=== PATIENT | female | born 1995 | race Caucasian/White ===

== ENCOUNTER → 2017-09-14 15:34 | Outpatient (CLI) | payer OTHER, SELFPAY ==
[2017-09-14 19:45] LABS: Chlamydia Trachomatis by PCR Negative (Negative); Neisserai gonorrhoeae by PCR Negative (Negative); Probe Check PASS; Sample Adequacy Control PASS; Specimen Processing Control PASS
[2017-09-17 08:02] LABS: HPV Reflexed? NOT INDICATED
== END ==
PROVIDERS: Visit Provider Obstetrics & Gynecology
DX: Z12.4 Encounter for screening for malignant neoplasm of cervix (principal); Z11.3 Encounter for screening for infections with a predominantly sexual mode of transmission
CPT/HCPCS: 87491; 87591; 88175; G0145

== ENCOUNTER → 2017-10-03 15:14 | Outpatient (CLI) | payer OTHER, SELFPAY ==
[2017-10-03 17:19] LABS: Color, Urine Yellow (Yellow); Glucose, Dipstick Normal (Normal); Ketone-Dipstick Negative (Negative); Leukocyte Esterase-Dipstick Negative /ul (Negative); Nitrite-Dipstick Negative (Negative); Occult Blood-Urine 25 /ul (Negative); Protein-Dipstick Negative (Negative); Urine Bilirubin Dipstick Negative (Negative); Urine Clarity Clear (Clear); Urine Urobilinogen Normal (Normal); Urine pH 6.5 (5.0 - 8.0)
[2017-10-03 18:08] LABS: Absolute Lymphocyte Count 1.29 X10^3/ul (0.83-4.51); Absolute Neutrophil Count 5.7 X10^3/uL (2.0-7.7); Basophil# 0.01 X10^3/uL; Basophil% 0.1 % (0-1); Eosinophil# 0.04 X10^3/uL; Eosinophils% 0.5 % (0-5); Hemoglobin 12.3 g/dl (12.0-15.0); Lymphocyte # 1.29 X10^3/ul (4.0); Mean Corp Hgb Conc 34.2 g/gl (32-36); Mean Corpuscular Hgb 28.3 pg (27.0-32.0); Mean Corpuscular Volume 82.9 fL (81-99); Mean Platelet Vol. 10.3 fl (6.2-12.0); Monocyte# 0.57 X10^3/uL; Monocyte% 7.5 % (0-10); Neutrophil # 5.69 X10^3/uL (2.7-7.7); Neutrophil % 74.8 % (47-70); Platelet Count 219 K/mm3 (150-450); RBC Distribution Width CV 13.1 % (11.6-14.6); RBC Distribution Width SD 39.1 fl (35.1-43.9); Red Blood Count 4.34 M/mm3 (4.2-5.4); White Blood Count 7.6 K/mm3 (4.4-11.0)
[2017-10-03 18:09] LABS: POSITIVE COUNT NO; POSITIVE DIFFERENTIAL NO; POSITIVE MORPHOLOGY NO
[2017-10-03 18:41] LABS: HIV - WCH Non-Reactive (Nonreactive); Rubella IgG 56.5 IU/mL
[2017-10-05 11:19] LABS: HEPATITIS B SURFACE AG Negative (Negative); Hep C Antibodies <0.1 s/co ratio (0.0-0.9)
[2017-10-07 03:16] LABS: Prenatal RPR NONREACTIVE (NONREACTIVE)
== END ==
PROVIDERS: Visit Provider Obstetrics & Gynecology
DX: Z34.81 Encounter for supervision of other normal pregnancy, first trimester (principal)
CPT/HCPCS: 36415; 81002; 84443; 85025; 86703; 86762; 86803; 87340

== ENCOUNTER → 2017-12-27 10:45 | Outpatient (CLI) | payer OTHER, SELFPAY ==
[2017-12-27 12:23] LABS: Hematocrit 35.7 % (37-47); Hemoglobin 12.3 g/dl (12.0-15.0); Mean Corp Hgb Conc 34.5 g/gl (32-36); Mean Corpuscular Hgb 28.9 pg (27.0-32.0); Mean Corpuscular Volume 83.8 fL (81-99); Mean Platelet Vol. 10.1 fl (6.2-12.0); Platelet Count 188 K/mm3 (150-450); RBC Distribution Width CV 13.4 % (11.6-14.6); RBC Distribution Width SD 40.7 fl (35.1-43.9); Red Blood Count 4.26 M/mm3 (4.2-5.4); White Blood Count 11.7 K/mm3 (4.4-11.0)
[2017-12-27 12:25] LABS: Scan Indicated on CBC? Y/N NO
[2017-12-27 12:48] LABS: Hemoglobin A1c 5.1 % (4.2-6.3)
[2017-12-27 12:50] LABS: Thyroid Stim Hormone (TSH) 0.87 uIU/mL (0.358-3.74)
== END ==
PROVIDERS: Visit Provider Obstetrics & Gynecology
DX: Z34.82 Encounter for supervision of other normal pregnancy, second trimester (principal)
CPT/HCPCS: 36415; 83036; 84443; 85027

== ENCOUNTER → 2018-03-07 13:27 | Outpatient (CLI) | payer OTHER, SELFPAY ==
--- OUTSIDE RECORDS SUMMARY | 2018-06-09 00:23 | XMS RPT_ITS ---
:1995 Author Organization OHIP Care Team Providers Name Role Phone Aide Schroeder Attending Unavailable Aide Schroeder Attending Unavailable Aide Schroeder Attending Unavailable Carolyn Garcia Primary Care Unavailable Jackson Ferreira Admitting Unavailable Jackson Ferreira Attending Unavailable Jackson Ferreira Referring Unavailable Aide Schroeder Attending Unavailable PROBLEMS PROBLEMS DATE TYPE CONDITION / CODE ATTENDING STATUS SOURCE 03/31/2018 Unknown G89.18 - Other acute Jackson Ferreira Active [facility] postprocedural pain Community / G89.18(ICD-10) Hospital Repository 03/07/2018 Unknown Z36.85 - Encounter Aide Schroeder Active Carol for Community screening for Hospital Streptococcus B / Repository Z36.85(ICD-10) 12/27/2017 Unknown Z34.82 - Encounter Aide Schroeder Active Carol for supervision of Community other normal Hospital , second Repository trimester / Z34.82(ICD-10) 10/03/2017 Unknown Z34.81 - Encounter Aide Schroeder Active Angelica for supervision of Community other normal Hospital , first Repository trimester / Z34.81(ICD-10) 09/23/2017 Unknown Z12.4 - Encounter Aide Schroeder Active Carol for screening for Community malignant neoplasm [facility] cervix / Repository Z12.4(ICD-10) PROCEDURES PROCEDURES No Procedure Records FoundRESULTS RESULTS DISCHARGE SUMMARY Observed: 03/31/2018 Status: F Source: [place] 7:15 AM [facility] REPOSITORY [facility] Medical Records Department [address] [place] [address] Discharge Summary 03/31/18 0713 MR#: [id number] Acct: [id number] Name: DAMIR GONZALEZ Rep #: [id number] : 1995 22 From: Aide Schroeder MD PCP: Status: ADM IN Location: [place] [address] Discharge Date and Diagnosis Date of Admission: 03/27/18 - Breech, labor. Date of Discharge: 03/31/18 - S/P primary C/S POD#4 Hospital Course and Treatment Consultations 03/27/18 19:45 Consult: Anesthesia Routine Comment: Reason For Exam: Operations: - - C section Summary of Care Provided: The patient is a 22 year old female presents with SROM in labor, breech presentation. Admitted for primary C/S. C/S performed, uncomplicated. delivered a newton viable male Postoperative course uneventful. AVSS benign exam Elected to stay until POD#4 for maternal fatigue and bilirubin requiring bili lights. Home on POD#4 - Physical Exam Vital Signs Temp Pulse Resp BP Pulse Ox 97.9 F 85 16 135/66 H 98 03/31/18 01:02 03/31/18 01:02 03/31/18 01:02 03/31/18 01:02 03/31/18 01:02 Oxygen Delivery Method Room Air Weight: 99.7 kg Body Mass Index (BMI) 33.4 Intake and Output for Last 24 Hours Output Total 500 / 500 Balance -500 / -500 Discharge Diet: No Restrictions Discharge Activity: May not drive while taking narcotic pain medications., May Shower, May Take a Tub Bath May resume sexual activity in: 4-6 weeks Additional Activity Instructions:: Nothing in the vagina for 4-6 weeks. You may return to work/school in 6 weeks. Call your doctor if your incision/area has: Continuous Slow Oozing, Sudden Increased Bleeding, Increased Pain/ Swelling, Increased Redness, Foul Smelling Discharge Call your doctor if you observe: Fever of 101 or Higher, Inability to urinate, Inability to have a bowel movement, Using more than one pad per hour Home Medications: Medications to take at Discharge Docusate Sodium [Colace] 100 mg PO BID PRN PRN #60 cap 03/27/18 Oxycodone [Oxyir] 5 mg PO Q6H PRN PRN 7 Days #20 tab 03/27/18 Following Prescrptions Were Given to Patient: Oxycodone [Oxyir] 5 mg PO Q6H PRN PRN 7 Days #20 tab PRN Reason: Severe Pain (6-12/28) Docusate Sodium [Colace] 100 mg PO BID PRN PRN #60 cap PRN Reason: Constipation Please Follow Up With: Aide Schroeder MD - [phone] When: Call to make an appointment for an incision check in 2 weeks. Medical Necessity - Tobacco Use Smoking Status: Never smoker Meaningful Use Info Meaningful Use Diagnoses (Choose all that apply): None applicable 03/31/18714 <Electronically signed by Aide Schroeder MD> Date Aide Schroeder MD Cosigner Signature (if applicable): Date CC: Aide Schroeder MD Signed CBC-COMPLETE BLOOD CNT Collected: 03/28/2018 Status: F Source: [place] NO DIFF 5:55 AM [facility] REPOSITORY Order Comment: Comments: Day #1 Reason for Laboratory Test TYPE CODE TESTS RESULT OUT OF RANGE REFERENCE UNITS LAB L100.1000 4.4-11.0 K/mm3 High WBC 14.7 LAB L100.1200 4.2-5.4 M/mm3 Low RBC 3.74 LAB L100.1300 12.0-15.0 g/dl Low HGB 10.4 LAB L100.1400 37-47 % Low HCT 31.5 LAB L100.1500 81-99 fL Normal MCV 84.2 LAB L100.1600 27.0-32.0 pg Normal MCH 27.8 LAB L100.1700 32-36 g/gl Normal MCHC 33.0 LAB L100.1810 11.6-14.6 % Normal RDW CV 13.6 LAB L100.1820 35.1-43.9 fl Normal RDW SD 40.9 LAB L100.1900 150-450 K/mm3 Normal PLT 164 LAB L100.2000 6.2-12.0 fl Normal MPV 10.0 Performed By: #### L100.0500 #### [facility] [address] [place], [address] DISCHARGE INSTRUCTION Observed: 03/27/2018 Status: F Source: [place] 10:21 PM [facility] REPOSITORY [facility] Medical Records Department [address] [place] [address] Instructions for Home/Discharge Instructions 03/27/18 2220 MR#: [id number] Acct: [id number] Name: DAMIR GONZALEZ Rep #: [id number] : 1995 22 From: Jackson Ferreira MD PCP: Status: ADM IN Discharge Diet: No Restrictions Discharge Activity: May not drive while taking narcotic pain medications., May Shower, May Take a Tub Bath May resume sexual activity in: 4-6 weeks Lifting Restrictions: 20 pounds Additional Activity Instructions:: Nothing in the vagina for 4-6 weeks. You may return to work/school in 6 weeks. Call your doctor if your incision/area has: Continuous Slow Oozing, Sudden Increased Bleeding, Increased Pain/ Swelling, Increased Redness, Foul Smelling Discharge Call your doctor if you observe: Fever of 101 or Higher, Inability to urinate, Inability to have a bowel movement, Using more than one pad per hour Additional Instructions: If you experience any of the following, contact your healthcare provider. * Bleeding that soaks a pad every hour for 2 hours * Unrelieved incision or abdominal pain * Swelling, redness, discharge or bleeding from your incision or episiotomy site * Your incision begins to separate * Problems urinating (including inability to urinate or burning while urinating). * Visual changes * Severe headache * Flu-like symptoms * Pain or redness in one of both of your breasts * Pain, warmth, tenderness or swelling in your legs, especially the calf area * Frequent nausea and vomiting * Symptoms of depression or anxiety If you experience any of the following, call 911 or go to the nearest Emergency Room. * Chest pain * Problems breathing * Seizure activity * Partial or complete paralysis of a body part, slurred speech, weakness or drooping of the face, or a sudden inability to walk or hold your balance Allergies/Adverse Reactions: Allergies No Known Allergies Allergy (Verified 03/27/18 20:43) Medications to take at Discharge Docusate Sodium [Colace] 100 mg PO BID PRN PRN #60 cap 03/27/18 Oxycodone [Oxyir] 5 mg PO Q6H PRN PRN 7 Days #20 tab 03/27/18 The following prescriptions were given: Oxycodone [Oxyir] 5 mg PO Q6H PRN PRN 7 Days #20 tab PRN Reason: Severe Pain (-12/28) Docusate Sodium [Colace] 100 mg PO BID PRN PRN #60 cap PRN Reason: Constipation Follow-Up: Call to make an appointment with your doctor for an incision check in 1-2 weeks. You will also need a 6 week post- follow up appointment. Please Follow Up With: Aide Schroeder MD - [phone] When: Call to make an appointment for an incision check in 2 weeks. 03/27/182220 <Electronically signed by Jackson Ferreira MD> Date Jackson Ferreira MD CC: Signed OPERATIVE REPORT Observed: 03/27/2018 Status: F Source: [place] 10:20 PM [facility] REPOSITORY [facility] Medical Records Department [address] [place] [address] Operative Report 03/27/18 2211 MR#: [id number] Acct: [id number] Name: GONZALEZDAMIR D Rep #: [id number] : 1995 22 From: Jackson Ferreira MD PCP: Status: ADM IN Location: [id number] Report of Operation Date of Procedure: 03/27/18 Pre-Operative Diagnosis: Breech Presentation, Active Labor Post-Operative Diagnosis: Breech Presentation, Active Labor Surgery/Procedure Performed:: Primary Low Transverse Cervical Section Description of Surgical Findings:: Viable male infant with Apgars of 8/9 in a estefania breech presentation with clear amniotic fluid and normal three-vessel placenta. Normal-appearing fallopian tubes and ovaries. net developer contract: Cynthia Andersen Type of Anesthesia:: Spinal - with Duramorph Anesthesiologist: Jose Luis Garcia Specimen's removed: [facility]a to [facility] Drains: Khan to straight drain Estimated Blood Loss (mL): <500 cc Fluids Replaced: Crystalloid Description of Procedure: Surgeon: Jackson Ferreira MD, FACOG Indication: This is a 22-year-old 1 para 0 who presented in active labor at 39+ weeks. She was ruptured. She progressed from 2-6 cm quickly and at this point it was noted that the baby was in breech presentation. It was decided to proceed immediately to primary section. care has otherwise been uneventful. The patient has been counseled regarding the risk and indications of this procedure including the possibility of bleeding infection and injury to surrounding structures such as bowel bladder. All questions were answered. Procedure: Patient was taken to the operating room where after spinal anesthesia was placed, the patient was prepped and draped in usual sterile fashion and a Khan catheter was placed. The abdomen was entered through a Pfannenstiel incision and peritoneum was entered bluntly. After developing a bladder flap on the lower uterine segment a low transverse incision was made on the uterus and breech was easily delivered onto the operative field the nose mouth and oropharynx were bulb suctioned. Subsequently a viable male infant was born with Apgars of 8/9. The infant was noted to cry move all extremities vigorously on the operative field. The umbilical cord was doubly clamped and ligated and handed to the nursery personnel who were present for the delivery. Placenta was delivered and noted to be 3 vessels and normal. Uterus was exteriorized and remaining placental tissue was removed. The uterus was then closed in 2 layers first with running locked 0 Vicryl suture followed by a second imbricating layer with 0 Vicryl suture. 0 Vicryl suture was then used in a horizontal mattress interrupted fashion to affect final hemostasis of the uterine incision line. Normal fallopian tubes and ovaries were visualized and the uterus was returned to the pelvis. Hemostasis was noted and rectus abdominis muscles were reapproximated in the midline with interrupted Number 0 Vicryl suture in a horizontal mattress fashion. Fascia was closed with running Number 1 PDS Strata fix suture. Subcutaneous tissue was irrigated with copious amouts of saline solution and then closed with running 3-0 Vicryl suture. Skin was closed with 4-0 monocryl suture in a running subcuticular fashion. Steri strips, telfa, and tape were placed across the incision. The patient tolerated the procedure well and was taken to the recovery room in satisfactory condition. Sponge, needle, and instrument counts were all reportedly correct. EBL was less than 500 cc. Ancef 2 gms IV was given prior to the procedure. Grafts/Implants Used: None - Complications None - Admit VTE Documentation VTE Present on Admission: Yes VTE Mechan Device Prophylaxis: SCD's 03/27/182219 <Electronically signed by Jackson Ferreira MD> Date Jackson Ferreira MD CC: Jackson Ferreira MD Signed CBC-COMPLETE BLOOD CNT Collected: 03/27/2018 Status: F Source: [place] NO DIFF 8:06 PM [facility] REPOSITORY TYPE CODE TESTS RESULT OUT OF RANGE REFERENCE UNITS LAB L100.1000 4.4-11.0 K/mm3 High WBC 12.1 LAB L100.1200 4.2-5.4 M/mm3 Normal RBC 4.29 LAB L100.1300 12.0-15.0 g/dl Normal HGB 12.3 LAB L100.1400 37-47 % Low HCT 35.9 LAB L100.1500 81-99 fL Normal MCV 83.7 LAB L100.1600 27.0-32.0 pg Normal MCH 28.7 LAB L100.1700 32-36 g/gl Normal MCHC 34.3 LAB L100.1810 11.6-14.6 % Normal RDW CV 13.5 LAB L100.1820 35.1-43.9 fl Normal RDW SD 40.4 LAB L100.1900 150-450 K/mm3 Normal PLT 196 LAB L100.2000 6.2-12.0 fl Normal MPV 10.5 Performed By: #### L100.0500 #### [facility] [address] [place], [address] TYPE AND SCREEN Collected: 03/27/2018 Status: F Source: [place] 8:06 PM [facility] REPOSITORY Order Comment: Reason for Type AND Screen/Red Cells: TYPE CODE TESTS RESULT OUT OF RANGE REFERENCE UNITS LAB B10.0800 A Normal BLOOD TYPE GEL POSITIVE LAB B100.4000 Normal Antibody NEGATIVE Screen Performed By: #### B101.7450 #### [facility] [address] [place], [address] Observed: 03/07/2018 Status: F Source: [place] CULTURE, GROUP B 8:45 AM [facility]PT[facility] REPOSITORY Comments: VAGINAL/RECTAL KEYLA Culture RESULTS CALLED TO NURSE LINE DR. SCHROEDER OFFICE 03/10/18 0946 Shawna Craft. ORGANISM 1: Streptococcus agalactiae (B) Amount Growth 3+ Streptococcus agalactiae (B): REACTION Ampicillin $ <=0.25 S Clindamycin $$ <=0.25 S Inducable Clindamycin Resistan - Linezolid $$$$ <=2 S Vancomycin $ 0.5 S (NF) indicates non-formulary drug at [facility]. Approval by Infectious Disease Specialist required before non-formulary drugs may be ordered and/or dispensed. * CLSI guidelines does not recommend testing of cephalosporins. This interpretation is deduced from Beta-lactam/penicillin results. Performed By: #### M100.1800 #### [facility] [address] [place], [address] CBC-COMPLETE BLOOD CNT Collected: 12/27/2017 Status: F Source: [place] NO DIFF 10:49 AM [facility] REPOSITORY TYPE CODE TESTS RESULT OUT OF RANGE REFERENCE UNITS LAB L100.1000 4.4-11.0 K/mm3 High WBC 11.7 LAB L100.1200 4.2-5.4 M/mm3 Normal RBC 4.26 LAB L100.1300 12.0-15.0 g/dl Normal HGB 12.3 LAB L100.1400 37-47 % Low HCT 35.7 LAB L100.1500 81-99 fL Normal MCV 83.8 LAB L100.1600 27.0-32.0 pg Normal MCH 28.9 LAB L100.1700 32-36 g/gl Normal MCHC 34.5 LAB L100.1810 11.6-14.6 % Normal RDW CV 13.4 LAB L100.1820 35.1-43.9 fl Normal RDW SD 40.7 LAB L100.1900 150-450 K/mm3 Normal PLT 188 LAB L100.2000 6.2-12.0 fl Normal MPV 10.1 Performed By: #### L100.0500 #### [facility] [address] [place], [address] HEMOGLOBIN A1C Collected: 12/27/2017 Status: F Source: [place] 10:49 AM [facility] REPOSITORY TYPE CODE TESTS RESULT OUT OF RANGE REFERENCE UNITS LAB L501.9985 4.2-6.3 % Normal HGB A1C 5.1 Performed By: #### L501.9985 #### [facility] [address] [place], [address] THYROID STIM HORMONE Collected: 12/27/2017 Status: F Source: [place] (TSH) 10:49 AM [facility] REPOSITORY TYPE CODE TESTS RESULT OUT OF RANGE REFERENCE UNITS LAB L501.9520 0.358-3.74 uIU/mL Normal TSH 0.87 Performed By: #### L501.9520 #### [facility] [address] [place], [address] URINALYSIS, ROUTINE Collected: 10/03/2017 Status: F Source: [place] (DIPSTICK) 3:16 PM [facility] REPOSITORY Order Comment: How was Urine Obtained? Urine, Random TYPE CODE TESTS RESULT OUT OF RANGE REFERENCE UNITS LAB L400.3000 Yellow COLOR Normal Yellow LAB L400.3050 Clear Normal CLARITY Clear LAB L400.3200 Normal mg/dl Normal GLUCOSE, UR Normal LAB L400.3300 Negative mg/dL Normal BILIRUBIN URINE Negative LAB L400.3400 Negative mg/dl Normal KETONE UR Negative LAB L400.3465 1.002-1.030 Normal SP.GR. DIPSTX 1.020 LAB L400.3550 5.0 - 8.0 pH UR Normal 6.5 LAB L400.3600 Negative mg/dl PROT Normal DIPSTX Negative LAB L400.3700 Normal mg/dl Normal UROBILI Normal LAB L400.3750 Negative Normal NITRITE UR Negative LAB L400.3780 Negative /ul High 25 OCCULT BLOOD-UR LAB L400.3800 Negative /ul LEUK Normal ESTERASE Negative Performed By: #### L400.2010 #### [facility] [address] [place], [address] THYROID STIM HORMONE Collected: 10/03/2017 Status: F Source: [place] (TSH) 3:16 PM [facility] REPOSITORY TYPE CODE TESTS RESULT OUT OF RANGE REFERENCE UNITS LAB L501.9520 0.358-3.74 uIU/mL Normal TSH 1.50 Performed By: #### L501.9520 #### [facility] [address] [place], [address] CBC W/DIFF, AUTOMATED Collected: 10/03/2017 Status: F Source: [place] 3:16 PM [facility] REPOSITORY TYPE CODE TESTS RESULT OUT OF RANGE REFERENCE UNITS LAB L100.1000 4.4-11.0 K/mm3 Normal WBC 7.6 LAB L100.1200 4.2-5.4 M/mm3 Normal RBC 4.34 LAB L100.1300 12.0-15.0 g/dl Normal HGB 12.3 LAB L100.1400 37-47 % Low HCT 36.0 LAB L100.1500 81-99 fL Normal MCV 82.9 LAB L100.1600 27.0-32.0 pg Normal MCH 28.3 LAB L100.1700 32-36 g/gl Normal MCHC 34.2 LAB L100.1810 11.6-14.6 % Normal RDW CV 13.1 LAB L100.1820 35.1-43.9 fl Normal RDW SD 39.1 LAB L100.1900 150-450 K/mm3 Normal PLT 219 LAB L100.2000 6.2-12.0 fl Normal MPV 10.3 LAB L100.2100 47-70 % High NEUT% 74.8 LAB L100.2200 19-41 % Low LY% 17.0 LAB L100.2300 0-10 % Normal MONO% 7.5 LAB L100.2400 0-5 % Normal EO% 0.5 LAB L100.2500 0-1 % Normal BASO% 0.1 LAB L100.2550 0.0-0.9 % Normal IM GRAN % 0.100 Result Comment: IG% - Immature Granulocytes (promyelocytes, myelocytes and metamyelocytes) > 1% indicates that a LEFT SHIFT is Present. LAB L100.2620 2.0-7.7 X10 3/uL Normal Absolute Neut 5.7 LAB L100.2720 0.83-4.51 X10 3/ul Normal Absolute Lymph 1.29 Performed By: #### L100.0100 #### [facility] [address] [place], [address] T AND S-NO Collected: 10/03/2017 Status: F Source: [place] CHARGE W/PNP 3:16 PM [facility] REPOSITORY Order Comment: Reason for Type AND Screen/Red Cells: Surgery? N TYPE CODE TESTS RESULT OUT OF RANGE REFERENCE UNITS LAB B10.0800 A Normal BLOOD POSITIVE TYPE GEL LAB B100.4050 Normal Ab SCREEN NEGATIVE GEL Performed By: #### B100.7550 #### [facility] [address] [place], [place], [address] RUBELLA IGG Collected: 10/03/2017 Status: F Source: [place] 3:16 PM [facility] REPOSITORY TYPE CODE TESTS RESULT OUT OF RANGE REFERENCE UNITS LAB L509.4000 IU/mL Normal Rubella IgG 56.5 Result Comment: Antibody results Interpretation of Immune Status < 5 IU/ml Presumed Non-immune 5 - < 10 IU/ml Equivocal > or = 10 IU/ml Presumed Immune Performed By: #### L509.4000, L3890.6005 #### [facility] [address] [place], [address] HIV - [facility] Collected: 10/03/2017 Status: F Source: [place] 3:16 PM [facility] REPOSITORY TYPE CODE TESTS RESULT OUT OF RANGE REFERENCE UNITS LAB L3890.6005 Nonreactive Normal HIV - [facility] Non-Reactive Performed By: #### L509.4000, L3890.6005 #### [facility] [address] [place], [place], [address] HEPATITIS B SURFACE Collected: 10/03/2017 Status: F Source: [place] AG 3:16 PM [facility] REPOSITORY TYPE CODE TESTS RESULT OUT OF RANGE REFERENCE UNITS LAB L3100.0400 Negative Normal HB Negative SURF AG Result Comment: Performed at: - [facility] [id number] Payroll Examiner: Gabriel Pedraza PhD, Phone: [phone] Performed By: #### L3100.0390, L3100.0625 #### [facility] (refer to report for specific site) refer to report for address and phone number HEPATITIS C ANTIBODIES Collected: 10/03/2017 Status: F Source: [place] 3:16 PM [facility] REPOSITORY TYPE CODE TESTS RESULT OUT OF RANGE REFERENCE UNITS LAB L3100.0650 0.0-0.9 s/co ratio Normal HEP C AB <0.1 Result Comment: Negative: < 0.8 Indeterminate: 0.8 - 0.9 Positive: > 0.9 The CDC recommends that a positive HCV antibody result be followed up with a HCV Nucleic Acid Amplification test (062870). Performed By: #### L3100.0390, L3100.0625 #### [facility] (refer to report for specific site) refer to report for address and phone number RPR Collected: 10/03/2017 Status: F Source: [place] 3:16 PM [facility] REPOSITORY TYPE CODE TESTS RESULT OUT OF REFERENCE UNITS RANGE LAB L700.5100 NONREACTIVE Normal RPR NONREACTIVE Performed By: #### L700.5100 #### [facility] [address] [place], [place], [address] CT/NG [facility] BY PCR Collected: 09/14/2017 Status: F Source: [place] 12:00 PM [facility] REPOSITORY TYPE CODE TESTS RESULT OUT OF RANGE REFERENCE UNITS LAB L8200.2100 Negative Normal Chlam Negative Trac PCR LAB L8200.2200 Negative Normal NG by Negative PCR Performed By: #### L8200.2000 #### [facility] [address] 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 of containers..01 ThinPrep Vial TYPE CODE TESTS RESULT OUT OF RANGE REFERENCE UNITS LAB L7400.0800 . Normal DIAGN Comment Result Comment: NEGATIVE FOR INTRAEPITHELIAL LESION AND MALIGNANCY. LAB L7400.0900 . Normal ADEQ Comment Result Comment: Satisfactory for evaluation. Endocervical and/or squamous metaplastic cells (endocervical component) are present. LAB L7400.1400 . Normal PERFORM Comment Result Comment: Mor Mas, Crystal Flat Grinder (ASCP) LAB L7400.2575 . Normal TEST METHOD Comment Result Comment: This liquid based ThinPrep(R) pap test was screened with the use of an image guided system. LAB L7400.2600 . Normal . COMM LAB L7400.2700 . Normal PAPSMR Comment Result Comment: The Pap smear is a screening test designed to aid in the detection of premalignant and malignant conditions of the uterine cervix. It is not a diagnostic procedure and should not be used as the sole means of detecting cervical cancer. Both false-positive and false-negative reports do occur. LAB L7400.2800 . Normal HPV RFLX Comment Result Comment: The HPV DNA reflex criteria were not met with this specimen result therefore, no HPV testing was performed. Performed at: [facility] [id number] Payroll Examiner: Patience Levin MD, Phone: [phone] Performed By: #### L7400.0350 #### [facility] (refer to report for specific site) refer to report for address and phone number ALLERGIES ALLERGIES DATE TYPE / CODE NAME / CODE REACTION SEVERITY SOURCE 03/27/2018 Drug No Known Unknown Carol [facility] Allergy/4160 Allergies/F00 [facility] [address](SNOMED [id number](RXNOR Repository CT) M) ENCOUNTERS ENCOUNTERS ADMIT/DISCHARGE ACCOUNT ADMITTING ENCOUNTER LOCATION SOURCE NUMBER CLASS 03/27/2018/ [id number] Jackson Ferreira Inpatient Angelica Angelica 9 4 Encounter [facility] ing:WPRoom: Repository [id number]: 1 03/07/2018 [id number] Ambulatory Angelica Angelica 9 [facility] ing:[facility] Repository 12/27/2017 [id number] Ambulatory Angelica Carol 4 [facility] ing:WOBLAB Repository 10/03/2017 [id number] Ambulatory Carol Angelica 5 [facility] ing:WOBLAB Repository 09/14/2017 [id number] Ambulatory Carol Angelica 5 [facility] ing:[facility] Repository PAYERS PAYERS ENCOUNTER GUARANTOR PAYER SUBSCRIBER SOURCE 03/27/2018 DAMIR Selby Primary Insurance:[facility] DAMIR Selby Carol [id number] TR PACKAGE PLANPolicy YODERDOB: [address], [facility]: [id number] [address]Ev[facility]: [id number] Repository Date:2017-10-11 (HP) 03/27/2018 Secondary NOT GIVENUNK Angelica Insurance:SELF PAY [facility] [facility] Number: Effective Repository Date:2017-10-11 03/07/2018 DAMIR Selby Primary DAMIR Selby Angelica [id number] TR Insurance:FINESSE YODERDOB: [address] [id number] [id number]: GROUPPolicy Number: Repository [id number] (HP) Date: [address] [address]QR: 03/07/2018 Secondary NOT GIVENUNK Angelica Insurance:SELF PAY [facility] Number: Effective Repository Date:2018-03-07 12/27/2017 DAMIR [id number] Primary DAMIR YODERDOB: [address] Insurance:FINESSE [id number] [address]Fpo: GROUPPolicy Number: Repository [id number] (HP) Date: [address] [address]NW: 12/27/2017 Secondary NOT GIVENUNK Carol Insurance:SELF PAY [facility] Number: Effective Repository Date:2017-12-27 10/03/2017 DAMIR [id number] Primary DAMIR CORTESB: [place] Insurance:[facility] [id number] Community [id number]: [phone] [place] [phone] () GROUPPolicy Number: Repository [id number] Date: [address] [address]WC: 10/03/2017 Secondary NOT GIVENUNK Angelica Insurance:SELF PAY [facility] Number: Effective Repository Date:2017-10-03 09/14/2017 DAMIR [id number] Primary DAMIR DUBOISOB: [place] Insurance:[facility] [id number] Community [id number]: [phone] [place] [phone] () GROUPPolicy Number: Repository [id number] Date: [address] [address]XS: 09/14/2017 Secondary NOT GIVENUNK Angelica Insurance:SELF PAY [facility] Number: Effective Repository Date:2017-09-14
== END ==
PROVIDERS: Visit Provider Obstetrics & Gynecology
DX: Z36.85 Encounter for antenatal screening for Streptococcus B (principal)
CPT/HCPCS: 87077; 87081; 87186

== ENCOUNTER 2018-03-27 19:00 | Inpatient (IN) | payer SELFPAY ==
[2018-03-27] MEDS: Lactated Ringers 1,000 ML 999 ML IV (19:50)
[2018-03-27 20:39] LABS: Hematocrit 35.9 % (37-47); Hemoglobin 12.3 g/dl (12.0-15.0); Mean Corp Hgb Conc 34.3 g/gl (32-36); Mean Corpuscular Hgb 28.7 pg (27.0-32.0); Mean Corpuscular Volume 83.7 fL (81-99); Mean Platelet Vol. 10.5 fl (6.2-12.0); Platelet Count 196 K/mm3 (150-450); RBC Distribution Width CV 13.5 % (11.6-14.6); RBC Distribution Width SD 40.4 fl (35.1-43.9); Red Blood Count 4.29 M/mm3 (4.2-5.4); White Blood Count 12.1 K/mm3 (4.4-11.0)
[2018-03-27 20:42] LABS: Scan Indicated on CBC? Y/N NO
[2018-03-27] MEDS: Lactated Ringers 1,000 ML 150 ML IV (21:15)
[2018-03-27] MEDS: Cefazolin 2 GM in 0.9% Normal Saline 100 ML IV (21:29)
[2018-03-27] MEDS: Methylergonovine 0.2 MG/ML Ampul IM (21:43)
[2018-03-27] MEDS: Ketorolac 30 MG/ML Syringe IV (22:07)
--- NOTE | 2018-03-27 22:11 | PCM.OPRPT ---
Report of Operation Date of Procedure: 03/27/18 Pre-Operative Diagnosis: Breech Presentation, Active Labor Post-Operative Diagnosis: Breech Presentation, Active Labor Surgery/Procedure Performed:: Primary Low Transverse Cervical Section Description of Surgical Findings:: Viable male with Apgars of 8/9 in a estefania breech presentation with clear amniotic fluid and normal three-vessel placenta. Normal-appearing fallopian tubes and ovaries. targeting acquisition officer: Cynthia Andersen Type of Anesthesia:: Spinal - with Duramorph Anesthesiologist: Jose Luis Garcia Specimen's removed: [facility]a to [facility] Drains: Khan to straight drain Estimated Blood Loss (mL): <500 cc Fluids Replaced: Crystalloid Description of Procedure: Surgeon: Jackson Ferreira MD, FACOG Indication: This is a 22-year-old 1 para 0 who presented in active labor at 39+ weeks. She was ruptured. She progressed from 2-6 cm quickly and at this point it was noted that the baby was in breech presentation. It was decided to proceed immediately to primary section. care has otherwise been uneventful. The patient has been counseled regarding the risk and indications of this procedure including the possibility of bleeding infection and injury to surrounding structures such as bowel bladder. All questions were answered. Procedure: Patient was taken to the operating room where after spinal anesthesia was placed, the patient was prepped and draped in usual sterile fashion and a Khan catheter was placed. The abdomen was entered through a Pfannenstiel incision and peritoneum was entered bluntly. After developing a bladder flap on the lower uterine segment a low transverse incision was made on the uterus and breech was easily delivered onto the operative field the nose mouth and oropharynx were bulb suctioned. Subsequently a viable male was born with Apgars of 8/9. The infant was noted to cry move all extremities vigorously on the operative field. The umbilical cord was doubly clamped and ligated and infant handed to the nursery personnel who were present for the delivery. Placenta was delivered and noted to be 3 vessels and normal. Uterus was exteriorized and remaining placental tissue was removed. The uterus was then closed in 2 layers first with running locked 0 Vicryl suture followed by a second imbricating layer with 0 Vicryl suture. 0 Vicryl suture was then used in a horizontal mattress interrupted fashion to affect final hemostasis of the uterine incision line. Normal fallopian tubes and ovaries were visualized and the uterus was returned to the pelvis. Hemostasis was noted and rectus abdominis muscles were reapproximated in the midline with interrupted Number 0 Vicryl suture in a horizontal mattress fashion. Fascia was closed with running Number 1 PDS Strata fix suture. Subcutaneous tissue was irrigated with copious amouts of saline solution and then closed with running 3-0 Vicryl suture. Skin was closed with 4-0 monocryl suture in a running subcuticular fashion. Steri strips, telfa, and tape were placed across the incision. The patient tolerated the procedure well and was taken to the recovery room in satisfactory condition. Sponge, needle, and instrument counts were all reportedly correct. EBL was less than 500 cc. Ancef 2 gms IV was given prior to the procedure. Grafts/Implants Used: None - Complications None - Admit VTE Documentation VTE Present on Admission: Yes VTE Mechan Device Prophylaxis: SCD's
--- NOTE | 2018-03-27 22:21 | DCINST_ITS ---
Discharge Diet: No Restrictions Discharge Activity: May not drive while taking narcotic pain medications., May Shower, May Take a Tub Bath May resume sexual activity in: 4-6 weeks Lifting Restrictions: 20 pounds Additional Activity Instructions:: Nothing in the vagina for 4-6 weeks. You may return to work/school in 6 weeks. Call your doctor if your incision/area has: Continuous Slow Oozing, Sudden Increased Bleeding, Increased Pain/ Swelling, Increased Redness, Foul Smelling Discharge Call your doctor if you observe: Fever of 101 or Higher, Inability to urinate, Inability to have a bowel movement, Using more than one pad per hour Additional Instructions: If you experience any of the following, contact your healthcare provider. * Bleeding that soaks a pad every hour for 2 hours * Unrelieved incision or abdominal pain * Swelling, redness, discharge or bleeding from your incision or episiotomy site * Your incision begins to separate * Problems urinating (including inability to urinate or burning while urinating). * Visual changes * Severe headache * Flu-like symptoms * Pain or redness in one of both of your breasts * Pain, warmth, tenderness or swelling in your legs, especially the calf area * Frequent nausea and vomiting * Symptoms of depression or anxiety If you experience any of the following, call 911 or go to the nearest Emergency Room. * Chest pain * Problems breathing * Seizure activity * Partial or complete paralysis of a body part, slurred speech, weakness or drooping of the face, or a sudden inability to walk or hold your balance Allergies/Adverse Reactions: Allergies No Known Allergies Allergy (Verified 03/27/18 20:43) Medications to take at Discharge Docusate Sodium [Colace] 100 mg PO BID PRN PRN #60 cap 03/27/18 Oxycodone [Oxyir] 5 mg PO Q6H PRN PRN 7 Days #20 tab 03/27/18 The following prescriptions were given: Oxycodone [Oxyir] 5 mg PO Q6H PRN PRN 7 Days #20 tab PRN Reason: Severe Pain (-12/28) Docusate Sodium [Colace] 100 mg PO BID PRN PRN #60 cap PRN Reason: Constipation Follow-Up: Call to make an appointment with your doctor for an incision check in 1-2 weeks. You will also need a 6 week post- follow up appointment. Please Follow Up With: Aide Duarte MD - [phone] When: Call to make an appointment for an incision check in 2 weeks.
[2018-03-27 22:30] VITALS: BP 105/85; BP 126/77; PULSE 75; RESP 20; TEMP 36.6; O2SAT 96
[2018-03-27 22:45] VITALS: BP 126/77; BP 136/62; PULSE 79; RESP 20; O2SAT 95
[2018-03-27 23:00] VITALS: BP 123/67; BP 126/77; PULSE 77; RESP 20; O2SAT 98
[2018-03-27 23:14] VITALS: BMI 33.4
[2018-03-27 23:15] VITALS: BP 126/77; BP 99/73; PULSE 85; RESP 20; O2SAT 98
[2018-03-27 23:30] VITALS: BP 110/74; BP 126/77; PULSE 83; RESP 20; O2SAT 97
[2018-03-27 23:45] VITALS: BP 117/69; BP 126/77; PULSE 85; RESP 20; O2SAT 98
[2018-03-28] VITALS (16 sets, daily range): BP systolic 114–133; BP diastolic 56–77; PULSE 80–102; RESP 16–20; TEMP 36.6–37; O2SAT 97–100
[2018-03-28] MEDS: Lactated Ringers 1,000 ML 100 ML IV (02:45)
[2018-03-28] MEDS: Ketorolac 30 MG/ML Syringe IV ×3 (02:45→15:36)
[2018-03-28] MEDS: Cefazolin 1 GM/50 ML BAG IV ×2 (05:43→13:54)
[2018-03-28 06:18] LABS: Hematocrit 31.5 % (37-47); Hemoglobin 10.4 g/dl (12.0-15.0); Mean Corpuscular Hgb 27.8 pg (27.0-32.0); Mean Corpuscular Volume 84.2 fL (81-99); Platelet Count 164 K/mm3 (150-450); RBC Distribution Width CV 13.6 % (11.6-14.6); RBC Distribution Width SD 40.9 fl (35.1-43.9); Red Blood Count 3.74 M/mm3 (4.2-5.4); White Blood Count 14.7 K/mm3 (4.4-11.0)
[2018-03-28 06:21] LABS: Scan Indicated on CBC? Y/N NO
--- NOTE | 2018-03-28 08:20 | PCM.PN.OB ---
Subjective: POD#1 Primary C/S for breech presentation Doing well. Pain control adequate. Breast feeding, but baby is not doing well with this yet. - Physical Exam General: Alert, Oriented x3, Cooperative, No apparent distress Neck: Supple Abdomen: Soft - Fundus firm tender c/w postop status, At 1-2 cm inferior to umbilicus Skin: Incision - Dressing CDI. No erythema noted Psych/Mental Status: Normal Affect Vital Signs Temp Pulse Resp BP Pulse Ox 98.1 F 83 16 115/66 98 03/28/18 06:26 03/28/18 06:26 03/28/18 06:26 03/28/18 06:26 03/28/18 06:26 Oxygen Delivery Method Room Air Weight: 99.7 kg Body Mass Index (BMI) 33.4 Intake and Output for Last 24 Hours 03/26/18 03/27/18 03/28/18 23:59 23:59 23:59 Intake Total 1500 / 1500 1328 / 1328 Output Total 615 / 615 Balance 1500 / 1500 713 / 713 Laboratory Tests Past 24 Hrs 03/27/03/27/18 03/28/18 20:06 20:06 05:55 WBC 12.1 H 14.7 H RBC 4.29 3.74 L Hgb 12.3 10.4 L Hct 35.9 L 31.5 L MCV 83.7 84.2 MCH 28.7 27.8 MCHC 34.3 33.0 RDW 13.5 13.6 RDW Differential 40.4 40.9 Plt Count 196 164 MPV 10.5 10.0 Blood Type A POSITIVE Antibody Screen NEGATIVE Medical Necessity - Tobacco Use Smoking Status: Never smoker Assessment/Plan POD#1 primary C/S for breech Stable postop. Inc diet and activity as tolerated. Support nursing prn. D/C whitley for voiding trial and S/L IV for Toradol. Continue care. Advised re option for future .
[2018-03-28] MEDS: 0.9% Saline Lock 10 ML Syringe IV (15:36)
[2018-03-28] MEDS: oxyCODONE 5 MG Tablet PO (22:04)
[2018-03-28] MEDS: Ibuprofen 600 MG Tablet PO (22:52)
[2018-03-29] MEDS: oxyCODONE 5 MG Tablet PO ×4 (02:36→20:02)
[2018-03-29] MEDS: Senna/Docusate Sodium 1 Tablet PO (02:37)
[2018-03-29 02:38] VITALS: BP 130/74; PULSE 71; RESP 15; TEMP 37.1; O2SAT 98
[2018-03-29] MEDS: Acetaminophen 500 MG Tablet 1000 MG PO (04:46)
[2018-03-29] MEDS: Ibuprofen 600 MG Tablet PO ×3 (06:14→18:38)
[2018-03-29 08:00] VITALS: BP 136/83; PULSE 86; RESP 16; TEMP 36.6; O2SAT 96
--- NOTE | 2018-03-29 08:21 | PCM.PN.OB ---
Subjective: POD#2 Primary C/S for breech Doing well Has decided to bottle feed. Baby bottle feeding well. States pain control ok. Questions about incision care and taking shower today. Having some shoulder, upper back / gas pain and using K pad which is helping. - Physical Exam General: Alert, Oriented x3, Cooperative, No apparent distress HEENT: Atraumatic Neck: Supple Abdomen: Soft - Fundus firm minimally tender c/w postop status, at 1-2 cm inferior to umbilicus Skin: Incision - Dressing removed. minimal old spots of blood on telfa. Steristrips in place. Small ecchymosis at inferior midportion of incision Neurological: Cranial nerves II-XII grossly intact Psych/Mental Status: Normal Affect Vital Signs Temp Pulse Resp BP Pulse Ox 98 F 86 16 136/83 H 96 03/29/18 08:00 /12/07 08:00 03/29/18 08:00 03/29/18 08:00 03/29/18 08:00 Oxygen Delivery Method Room Air Weight: 99.7 kg Body Mass Index (BMI) 33.4 Intake and Output for Last 24 Hours //03/28/18 03/29/18 23:59 23:59 23:59 Intake Total 1500 / 1500 2368 / 2368 Output Total 2315 / 2315 500 / 500 Balance 1500 / 1500 53 / 53 -500 / -500 Medical Necessity - Tobacco Use Smoking Status: Never smoker Assessment/Plan POD#2 primary C/S for breech Stable postop. continue care. Plans to go home tomorrow.
[2018-03-29 14:20] VITALS: BP 135/76; PULSE 86; RESP 18; TEMP 36.9; O2SAT 97
--- NOTE | 2018-03-29 14:20 | NURSING ---
education provided on bottle preparation and storage using pre-made and powder formula
[2018-03-29 19:50] VITALS: BP 136/79; PULSE 81; RESP 16; TEMP 36.9; O2SAT 97
[2018-03-30] MEDS: oxyCODONE 5 MG Tablet PO ×4 (00:16→22:40)
[2018-03-30] MEDS: Ibuprofen 600 MG Tablet PO ×3 (01:47→16:51)
[2018-03-30 01:50] VITALS: BP 127/76; PULSE 79; RESP 18; TEMP 36.6; O2SAT 96
[2018-03-30 07:58] VITALS: BP 133/81; PULSE 82; RESP 18; TEMP 36.9; O2SAT 98
[2018-03-30] MEDS: Senna/Docusate Sodium 1 Tablet PO (08:01)
--- NOTE | 2018-03-30 08:49 | PCM.PN.OB ---
Subjective: POD#3 Primary C/S Breech Baby is now under bili lights and will likely need to stay (or may be able to go home today, but with very close f/u tomorrow). States she is very tired. Would like to stay today yet - Physical Exam General: Oriented x3 - rouses to voice, appears very tired, Cooperative, No apparent distress HEENT: Atraumatic, EOMI Neck: Supple Abdomen: Soft - Fundus firm and tender c/w postop status. Wearing abdominal binder. Skin: Incision - Steristrips in place. CDI. Psych/Mental Status: Normal Affect Vital Signs Temp Pulse Resp BP Pulse Ox 98.4 F 82 18 133/81 H 98 /01/06 07:58 03/30/18 07:58 03/30/18 07:58 03/30/18 07:58 03/30/18 07:58 Oxygen Delivery Method Room Air Weight: 99.7 kg Body Mass Index (BMI) 33.4 Intake and Output for Last 24 Hours //08 04/12/0703/30/18 23:59 23:59 23:59 Intake Total 2368 / 2368 Output Total 2315 / 2315 500 / 500 Balance 53 / 53 -500 / -500 Medical Necessity - Tobacco Use Smoking Status: Never smoker Assessment/Plan POD#3 primary C/S for breech Stable postop. continue care. Plans to go home tomorrow.
[2018-03-30 12:04] VITALS: BP 129/75; PULSE 78; RESP 18; TEMP 36.7; O2SAT 97
[2018-03-30 15:25] VITALS: BP 111/61; PULSE 87; RESP 18; TEMP 36.6; O2SAT 98
[2018-03-30 20:15] VITALS: BP 133/74; PULSE 78; RESP 18; TEMP 37.1; O2SAT 96
[2018-03-31 01:02] VITALS: BP 135/66; PULSE 85; RESP 16; TEMP 36.6; O2SAT 98
[2018-03-31] MEDS: Ibuprofen 600 MG Tablet PO (01:07)
--- NOTE | 2018-03-31 07:10 | PCM.PN.OB ---
Subjective: POD#4 Primary C/S for breech, labor Doing well Would like to go home today. Feeling much more rested. Baby had bilirubin lights. Close f/u planned outpt. Pain control adequate. Bottle feeding Objective: Lying in bed, holding sleeping baby. Abdominal binder in place - Physical Exam General: Alert, Oriented x3, Cooperative, No apparent distress HEENT: EOMI Neck: Supple Abdomen: Soft - Fundus firm, tender c/w postop status Skin: Incision - steristrips CDI. minimal old dischg noted. Psych/Mental Status: Normal Affect Vital Signs Temp Pulse Resp BP Pulse Ox 97.9 F 85 16 135/66 H 98 /02/06 01:02 03/31/18 01:02 03/31/18 01:02 03/31/18 01:02 03/31/18 01:02 Oxygen Delivery Method Room Air Weight: 99.7 kg Body Mass Index (BMI) 33.4 Intake and Output for Last 24 Hours /12/0703/30/18 03/31/18 23:59 23:59 23:59 Output Total 500 / 500 Balance -500 / -500 Medical Necessity - Tobacco Use Smoking Status: Never smoker Assessment/Plan POD#4 primary C/S for breech Stable postop. continue care. Discharge home today
--- NOTE | 2018-03-31 07:13 | PCM.DC.SUM ---
Discharge Date and Diagnosis Date of Admission: 03/27/18 - Breech, labor. Date of Discharge: 03/31/18 - S/P primary C/S POD#4 Hospital Course and Treatment Consultations 03/27/18 19:45 Consult: Anesthesia Routine Comment: Reason For Exam: Operations: - - C section Summary of Care Provided: The patient is a 22 year old female presents with SROM in labor, breech presentation. Admitted for primary C/S. C/S performed, uncomplicated. delivered a [place] viable male Postoperative course uneventful. AVSS benign exam Elected to stay until POD#4 for maternal fatigue and infant bilirubin requiring bili lights. Home on POD#4 - Physical Exam Vital Signs Temp Pulse Resp BP Pulse Ox 97.9 F 85 16 135/66 H 98 03/31/18 01:02 03/31/18 01:02 03/31/18 01:02 03/31/18 01:02 03/31/18 01:02 Oxygen Delivery Method Room Air Weight: 99.7 kg Body Mass Index (BMI) 33.4 Intake and Output for Last 24 Hours 03/29/18 03/30/18 03/31/18 23:59 23:59 23:59 Output Total 500 / 500 Balance -500 / -500 Discharge Diet: No Restrictions Discharge Activity: May not drive while taking narcotic pain medications., May Shower, May Take a Tub Bath May resume sexual activity in: 4-6 weeks Additional Activity Instructions:: Nothing in the vagina for 4-6 weeks. You may return to work/school in 6 weeks. Call your doctor if your incision/area has: Continuous Slow Oozing, Sudden Increased Bleeding, Increased Pain/ Swelling, Increased Redness, Foul Smelling Discharge Call your doctor if you observe: Fever of 101 or Higher, Inability to urinate, Inability to have a bowel movement, Using more than one pad per hour Home Medications: Medications to take at Discharge Docusate Sodium [Colace] 100 mg PO BID PRN PRN #60 cap 03/27/18 Oxycodone [Oxyir] 5 mg PO Q6H PRN PRN 7 Days #20 tab 03/27/18 Following Prescrptions Were Given to Patient: Oxycodone [Oxyir] 5 mg PO Q6H PRN PRN 7 Days #20 tab PRN Reason: Severe Pain (6-12/28) Docusate Sodium [Colace] 100 mg PO BID PRN PRN #60 cap PRN Reason: Constipation Please Follow Up With: Aide Duarte MD - [phone] When: Call to make an appointment for an incision check in 2 weeks. Medical Necessity - Tobacco Use Smoking Status: Never smoker Meaningful Use Info Meaningful Use Diagnoses (Choose all that apply): None applicable
[2018-03-31] MEDS: oxyCODONE 5 MG Tablet PO (07:52)
[2018-03-31] MEDS: Senna/Docusate Sodium 1 Tablet PO (07:52)
[2018-03-31 08:12] VITALS: BP 134/79; PULSE 80; RESP 18; TEMP 36.6; O2SAT 99
--- NOTE | 2018-04-04 18:35 | NURSING ---
Mom doing well with feedings, milk is in and sleeping well. Mom doing well with post section healing too. Definitely had a good experience and would recommend anyone to us. Yumiko GODFREY
== END 2018-03-31 11:50 | disposition home or self-care (01) | DRG 788 ==
PROVIDERS: Admitting Provider Obstetrics & Gynecology; Referring Provider Obstetrics & Gynecology; Visit Provider Obstetrics & Gynecology
DX: O32.1XX0 Maternal care for breech presentation, not applicable or unspecified (principal); Z3A.39 39 weeks gestation of pregnancy; Z37.0 Single live birth
CPT/HCPCS: 59025; 59050; 76815; 85027; 86850; 86900; 99218; J7120; A4216; G0378; J2405

== ENCOUNTER → 2018-11-23 11:33 | Outpatient (CLI) | payer OTHER, SELFPAY ==
[2018-11-23 12:55] LABS: hCG Titer Quant., Serum 4 mIU/mL (1-3)
== END ==
PROVIDERS: Visit Provider Obstetrics & Gynecology
DX: O03.9 Complete or unspecified spontaneous abortion without complication (principal)
CPT/HCPCS: 36415; 84702

== ENCOUNTER → 2020-03-03 | Outpatient (CLI) | payer OTHER, SELFPAY ==
[2020-03-06 20:07] LABS: Chlamydia By Nucleic Acid AMP Negative (Negative)
[2020-03-06 22:44] LABS: Gonococcus By Nucleic Acid AMP Negative (Negative)
== END | disposition home or self-care (01) ==
LOC: LABSPEC 15:00
PROVIDERS: Visit Provider Student in an Organized Health Care Education/Training Program
DX: Z32.01 Encounter for pregnancy test, result positive (principal); Z11.3 Encounter for screening for infections with a predominantly sexual mode of transmission; R30.0 Dysuria
CPT/HCPCS: 87086; 87088; 87491; 87591

== ENCOUNTER → 2020-03-24 10:45 | Outpatient (CLI) | payer OTHER, SELFPAY ==
[2020-03-24 12:06] LABS: Absolute Lymphocyte Count 1.39 X10^3/uL (0.83-4.51); Absolute Neutrophil Count 7.8 X10^3/uL (2.0-7.7); Basophil# 0.02 X10^3/uL; Basophil% 0.2 % (0-1); Eosinophil# 0.02 X10^3/uL; Eosinophils% 0.2 % (0-5); Hematocrit 37.9 % (37-47); Hemoglobin 12.2 g/dL (12.0-15.0); Lymphocyte # 1.39 X10^3/ul (4.0); Lymphocyte % 14.3 % (19-41); Mean Corp Hgb Conc 32.2 g/dL (32-36); Mean Corpuscular Hgb 27.1 pg (27.0-32.0); Mean Platelet Vol. 9.8 fl (6.2-12.0); Monocyte# 0.43 X10^3/uL; Monocyte% 4.4 % (0-10); NRBC Flagged by Analyzer 0 % (0-5); Neutrophil # 7.79 X10^3/uL (2.7-7.7); Neutrophil % 80.5 % (47-70); Platelet Count 243 K/mm3 (150-450); RBC Distribution Width CV 13.1 % (11.6-14.6); RBC Distribution Width SD 39.8 fl (35.1-43.9); Red Blood Count 4.51 M/mm3 (4.2-5.4); White Blood Count 9.7 K/mm3 (4.4-11.0)
[2020-03-24 12:56] LABS: HIV - WCH Non-Reactive (Nonreactive); Hepatitis B Surface Antigen Non-Reactive (Nonreactive); Hepatitis C Antibody Non-Reactive (Nonreactive); Rubella IgG Reactive (Nonreactive)
[2020-03-27 01:36] LABS: Prenatal RPR NONREACTIVE (NONREACTIVE)
== END ==
PROVIDERS: Visit Provider Student in an Organized Health Care Education/Training Program
DX: Z34.92 Encounter for supervision of normal pregnancy, unspecified, second trimester (principal)
CPT/HCPCS: 36415; 85025; 86703; 86762; 86803; 87086; 87340

== ENCOUNTER → 2020-04-21 | Outpatient (CLI) | payer OTHER, SELFPAY | END | disposition home or self-care (01) | LOC: LABSPEC 15:42 | PROVIDERS: Visit Provider Student in an Organized Health Care Education/Training Program | DX: R30.0 Dysuria (principal) | CPT/HCPCS: 87086; 87088 ==

== ENCOUNTER → 2020-04-28 | Outpatient (CLI) | payer OTHER, SELFPAY | END | disposition home or self-care (01) | LOC: LABSPEC 11:10 | PROVIDERS: Visit Provider Student in an Organized Health Care Education/Training Program | DX: R31.9 Hematuria, unspecified (principal) | CPT/HCPCS: 87086 ==

== ENCOUNTER → 2020-07-03 14:29 | Outpatient (CLI) | payer OTHER, SELFPAY ==
[2020-07-03 16:11] LABS: Hematocrit 35.7 % (37-47); Hemoglobin 11.9 g/dL (12.0-15.0); Mean Corp Hgb Conc 33.3 g/dL (32-36); Mean Corpuscular Hgb 27.8 pg (27.0-32.0); Mean Corpuscular Volume 83.4 fL (81-99); Mean Platelet Vol. 9.9 fl (6.2-12.0); Platelet Count 233 K/mm3 (150-450); RBC Distribution Width CV 13.6 % (11.6-14.6); RBC Distribution Width SD 41.5 fl (35.1-43.9); Red Blood Count 4.28 M/mm3 (4.2-5.4); White Blood Count 9.4 K/mm3 (4.4-11.0)
[2020-07-03 16:38] LABS: Glucose Challenge Gest 1H 50g 79 mg/dL (70-140)
== END ==
PROVIDERS: Visit Provider Obstetrics & Gynecology
DX: Z34.83 Encounter for supervision of other normal pregnancy, third trimester (principal)
CPT/HCPCS: 36415; 82950; 85027

== ENCOUNTER → 2020-07-29 | Outpatient (CLI) | payer OTHER, SELFPAY ==
[2020-07-29 11:58] LABS: Bacteria 0 SEEN /hpf (None Seen); Mucous, Urine 0 SEEN /hpf (<or=2+); White Blood Cells 0 SEEN /hpf (0-5)
[2020-07-29 13:39] LABS: Color, Urine Yellow (Yellow); Glucose, Dipstick Normal (Normal); Ketone-Dipstick Negative (Negative); Leukocyte Esterase-Dipstick Negative /ul (Negative); Nitrite-Dipstick Negative (Negative); Occult Blood-Urine 10 /ul (Negative); Protein-Dipstick Negative (Negative); Urine Bilirubin Dipstick Negative (Negative); Urine Clarity Clear (Clear); Urine Urobilinogen Normal (Normal)
[2020-07-29 13:48] LABS: Red Blood Cells-Urine 0-5 SEEN /hpf (0-5); Squamous Epithelial Cells - UA 0-5 SEEN /hpf (5-10)
== END | disposition home or self-care (01) ==
LOC: LABSPEC 11:42
PROVIDERS: Visit Provider Student in an Organized Health Care Education/Training Program
DX: R30.0 Dysuria (principal)
CPT/HCPCS: 81001; 87086; 87088

== ENCOUNTER → 2020-08-11 | Outpatient (CLI) | payer OTHER, SELFPAY ==
[2020-08-11 14:21] LABS: Red Blood Cells-Urine 0 SEEN /hpf (0-5)
[2020-08-11 17:19] LABS: Color, Urine Yellow (Yellow); Glucose, Dipstick Normal (Normal); Ketone-Dipstick Negative (Negative); Leukocyte Esterase-Dipstick 500 /ul (Negative); Nitrite-Dipstick Negative (Negative); Occult Blood-Urine 50 /ul (Negative); Protein-Dipstick 15 mg/dl (Negative); Urine Bilirubin Dipstick Negative (Negative); Urine Clarity Sl. Cloudy (Clear); Urine Urobilinogen Normal (Normal)
[2020-08-11 17:37] LABS: Bacteria 2+ /hpf (None Seen); Mucous, Urine 1+ /hpf (<or=2+); Squamous Epithelial Cells - UA 5-10 SEEN /hpf (5-10); White Blood Cells 10-25 SEEN /hpf (0-5)
== END | disposition home or self-care (01) ==
LOC: LABSPEC 14:18
PROVIDERS: Visit Provider Student in an Organized Health Care Education/Training Program
DX: Z34.83 Encounter for supervision of other normal pregnancy, third trimester (principal); R30.0 Dysuria
CPT/HCPCS: 81001; 87086; 87088

== ENCOUNTER 2020-08-29 02:43 | Outpatient (CLI) | payer OTHER, SELFPAY ==
[2020-08-29 02:47] VITALS: BMI 33.6
[2020-08-29 03:03] VITALS: BP 126/75; PULSE 83; TEMP 37.1; O2SAT 97
[2020-08-29] MEDS: Lactated Ringers 1,000 ML 150 ML IV (03:35)
[2020-08-29 04:34] LABS: Group B Strep DNA By PCR Negative (Negative); Internal Control PASS; Probe Check PASS; Specimen Processing Control PASS
[2020-08-29] MEDS: Betamethasone/Betamethasone 30 MG/5 ML Vial 12 MG IM (06:26)
[2020-08-29 07:21] VITALS: BP 120/65; PULSE 77; TEMP 36.4
--- NOTE | 2020-08-29 08:13 | OB.TRI.NOTE ---
HPI - General HPI Narrative DAMIR GONZALEZ, is a 24 F G3, P1 at 36 weeks and 2 days with TIEN: 09/24/2020 by LMP arrives with contractions. Denies headache, visual changes, chest pain, shortness of breath, nausea vomiting, right upper quadrant pain. Patient states good movement. 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 Obstetric history: G1: 39-week primary section for breech G2: SAB G3: Current Past medical history: None Medications: vitamin Past surgical history: section Allergies: No known drug allergies Social history: Denies smoking, alcohol use, drug use Family history: Denies history DVT or PE Review of systems: Besides above pertinent positives for review systems performed found to be negative PFSH PFSH Allergy/AdvReac Type Severity Reaction Status Date / Time No Known Allergies Allergy Verified 08/29/20 03:13 Social History Smoking Status: Never smoker History Elective abortions Hx Para 0 Spontaneous abortions Hx # Term Pregnancies Ectopic pregnancies Hx # Pregnancies Multiple births # of living children Physical Exam Const alert, oriented x3, no apparent distress, average body habitus, no limitations, healthy appearing and well nourished HEENT Head and Scalp: normocephalic and atraumatic Neck full ROM and no lymphadenopathy Resp normal respiratory effort, no retractions and no use of accessory muscles GI normal to inspection, nondistended, normoactive bowel sounds Narrative: Cervical exam: 1/50/-3 Extremity normal to inspection, full ROM and no clubbing, cyanosis or edema Skin no rashes or lesions noted Psych mental status grossly normal, affect normal, speech normal and activity/motor behavior normal NST FHR Rate Baby A Baseline: 120 Variability:: Moderate Accelerations:: 15 x 15 Decelerations:: None FHR Category:: Category I Uterine Activity:: Every 8 to 10 minutes Assessment & Plan (1) : PLAN: 24-year-old G3, P1 at 36 weeks and 2 days arrives with contractions no signs of labor after no cervical change in greater than 5 hours. Patient given first dose of Celestone today, will repeat second dose in 24 hours. Will discharge home, educated on precautions and contractions. Educated on Celestone along with contractions versus labor, educated on repeat dose tomorrow morning and evaluation in triage tomorrow. We will follow-up at scheduled appointments this Tuesday
== END 2020-08-29 08:30 | disposition home or self-care (01) ==
LOC: WPOUT 02:46 → WP 02:47
PROVIDERS: Visit Provider Obstetrics & Gynecology
DX: O26.893 Other specified pregnancy related conditions, third trimester (principal); N85.8 Other specified noninflammatory disorders of uterus; Z3A.36 36 weeks gestation of pregnancy
CPT/HCPCS: 59025; 59050; 87081; 87653; 96372; 99218; J7120; G0378; J0702

== ENCOUNTER 2020-08-30 08:00 | Outpatient (CLI) | payer OTHER, SELFPAY ==
[2020-08-29 02:47] VITALS: BMI 33.6
[2020-08-30 08:07] VITALS: BMI 33.8
[2020-08-30 08:15] VITALS: TEMP 36.4
[2020-08-30 08:16] VITALS: BP 141/87; PULSE 81
[2020-08-30 08:26] VITALS: BP 142/75; PULSE 75
[2020-08-30] MEDS: Betamethasone/Betamethasone 30 MG/5 ML Vial 12 MG IM (08:38)
--- NOTE | 2020-08-30 08:40 | OB.TRI.NOTE ---
HPI - General HPI Narrative DAMIR GONZALEZ, is a 24 F who presents for her second dose of Celestone today. She also reports some contractions so she was examined and noted be unchanged versus yesterday. Maternal Data Information Final TIEN: 09/24/20 Final TIEN Source: US <20 weeks PFSH PFSH Allergy/AdvReac Type Severity Reaction Status Date / Time No Known Allergies Allergy Verified 08/30/20 08:07 Social History Smoking Status: Never smoker History Elective abortions Hx Para 0 Spontaneous abortions Hx # Term Pregnancies Ectopic pregnancies Hx # Pregnancies Multiple births # of living children NST FHR Rate Baby A NST Reactive:: Yes FHR Category:: Category I Assessment & Plan (1) : PLAN: 24-year-old G3, P1 at 36 weeks and 3 days arrived yesterday with contractions no signs of labor after no cervical change in greater than 5 hours. Patient given first dose of Celestone yesterday, and repeat dose this morning. Will discharge home, educated on precautions and contractions. We will follow-up at scheduled appointments this Tuesday
== END 2020-08-30 09:05 ==
LOC: WPOUT 08:03 → WP 08:04
PROVIDERS: Referring Provider Obstetrics & Gynecology; Visit Provider Obstetrics & Gynecology
DX: O62.8 Other abnormalities of forces of labor (principal); Z3A.36 36 weeks gestation of pregnancy
CPT/HCPCS: 59025; 59050; 96372; 99218; G0378; J0702

== ENCOUNTER 2020-09-01 20:10 | Outpatient (CLI) | payer OTHER, SELFPAY ==
[2020-09-01 20:16] VITALS: BMI 33.9
[2020-09-01 20:26] VITALS: BP 132/75; TEMP 36.9; O2SAT 96
[2020-09-01 20:27] VITALS: PULSE 90; O2SAT 96
[2020-09-01 21:36] LABS: ROM Internal Control Test YES-OK TO RESULT pt. (Internal QC); ROM Patient Test Negative (Negative)
--- NOTE | 2020-09-01 21:53 | NURSING ---
this RN charted NA on fetus presentation d/t no recent confirmation of infant being breech presentation. 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 US on 05/26/20 does not confirm breech presentation in history and physical.
--- NOTE | 2020-09-01 22:12 | NURSING ---
call placed to Dr. Ferreira to inform him that patient'c H&P on unit is not up to date and does not state that patient is breech presentation at this time; informed that Toyin GODFREY was unable to determine presenting part with VE and Dr. Ferreira stated that patient can still be discharged to home d/t no concerns about labor at this time and will send updated H&P from office ADRIEN; this RN verbalized understanding.
--- NOTE | 2020-09-02 20:00 | OB.TRI.HP_ITS ---
HPI - General HPI Narrative DAMIR GONZALEZ, is a 25 F who presents at 36 weeks and 6 days gestation with some leaking of fluid. care has been remarkable for a history of some transient contractions and she has already received 2 doses of steroids to assist with lung maturity several days ago. Minimal contractions are noted on the monitor. This note is for a visit from September 02, 2020. Maternal Data Information Final TIEN: 09/24/20 Gestational age: 36+ weeks at this visit PFSH PFSH Home Medications oxycodone 5 mg PO Q6H PRN PRN 5 Days #24 tab 09/16/20 [Rx Last Taken Unknown] Allergy/AdvReac Type Severity Reaction Status Date / Time No Known Allergies Allergy Verified 09/15/20 13:00 Surgical History Previous section Social History (Updated 09/15/20 @ 12:[address] Claudine Alvarado DO) Smoking Status: Never smoker alcohol intake: never substance use type: does not use History 2 Elective abortions 0 Hx Para 1 Spontaneous abortions 0 Hx # Term Pregnancies 1 Ectopic pregnancies 0 Hx # Pregnancies 0 Multiple births 0 # of living children 1 NST FHR Rate Baby A NST Reactive:: Yes FHR Category:: Category I Assessment & Plan (1) Vaginal discharge during in third trimester: COMMENT: 36+ week intrauterine with leaking of vaginal fluid. R OM test was negative. Reactive nonstress test. Will discharge to home with routine instructions.
== END 2020-09-01 22:05 | disposition home or self-care (01) ==
LOC: WPOUT 20:15 → WP 20:15
PROVIDERS: Referring Provider Obstetrics & Gynecology; Visit Provider Obstetrics & Gynecology
DX: O26.893 Other specified pregnancy related conditions, third trimester (principal); N89.8 Other specified noninflammatory disorders of vagina; Z3A.36 36 weeks gestation of pregnancy
CPT/HCPCS: 59025; 59050; 84112; 99218; G0378

== ENCOUNTER → 2020-09-10 16:12 | Outpatient (CLI) | payer OTHER, SELFPAY ==
[2020-09-01 20:16] VITALS: BMI 33.9
[2020-09-10 16:52] LABS: Hematocrit 36.7 % (37-47); Hemoglobin 12.2 g/dL (12.0-15.0); Mean Corp Hgb Conc 33.2 g/dL (32-36); Mean Corpuscular Hgb 26.9 pg (27.0-32.0); Mean Platelet Vol. 9.8 fl (6.2-12.0); Platelet Count 242 K/mm3 (150-450); RBC Distribution Width CV 13.6 % (11.6-14.6); RBC Distribution Width SD 39.6 fl (35.1-43.9); Red Blood Count 4.53 M/mm3 (4.2-5.4); White Blood Count 12.8 K/mm3 (4.4-11.0)
[2020-09-10 17:03] LABS: AST(SGOT) 8 U/L (15-37); Alanine Aminotransfer ALT/SGPT 9 U/L (13-56); Creatinine, Serum 0.58 mg/dL (0.55-1.02); EST Glomerular Filtration Rate 135 mL/min (>60); Est Glom Filt Rate - Afr Amer 163 mL/min (>60); Uric Acid 3.1 mg/dL (2.6-6.0)
[2020-09-10 17:10] LABS: International Normalized Ratio 0.9
[2020-09-10 17:11] LABS: Partial Thromboplast Time 25.6 Seconds (24.1-36.2)
== END ==
PROVIDERS: Visit Provider Obstetrics & Gynecology
DX: O13.9 Gestational [pregnancy-induced] hypertension without significant proteinuria, unspecified trimester (principal); Z3A.00 Weeks of gestation of pregnancy not specified
CPT/HCPCS: 36415; 82565; 84450; 84460; 84550; 85027; 85610; 85730

== ENCOUNTER 2020-09-15 12:14 | Inpatient (IN) | payer SELFPAY, OTHER ==
[2020-09-15] VITALS (19 sets, daily range): BP systolic 113–138; BP diastolic 54–91; PULSE 74–94; RESP 16–20; TEMP 36.1–37; O2SAT 80–100; BMI 34.2
[2020-09-15] MEDS: Lactated Ringers 1,000 ML 999 ML IV (12:50)
--- NOTE | 2020-09-15 12:52 | HP.PCM.OB_ITS ---
HPI - General General Date of Admission: 09/15/20 HPI Narrative 25 yo at 38/5w, TIEN 09/24/20 by LMP, admitted for repeat section for nonreassuring heart tones in office at term. Denies LOF, VB, contractions. +FM. Denies CHIN, vision changes, chest pain, dyspnea, nausea/emesis, diarrhea/constipation, fevers/chills. 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 Has had echo in May that showed m ild enlargement of RA and RV. Recommended for pediatric cardiology follow up at 1-2 months. PFSH PFSH Allergy/AdvReac Type Severity Reaction Status Date / Time No Known Allergies Allergy Verified 09/15/20 13:00 Surgical History Previous section Social History (Updated 09/15/20 @ 12:[address] Claudine Alvarado DO) Smoking Status: Never smoker alcohol intake: never substance use type: does not use History 2 Elective abortions 0 Hx Para 1 Spontaneous abortions 0 Hx # Term Pregnancies 1 Ectopic pregnancies 0 Hx # Pregnancies 0 Multiple births 0 # of living children 1 NST FHR Rate Baby A Baseline: 135 Variability:: Moderate Accelerations:: 15 x 15 Decelerations:: None NST Reactive:: Yes ROS Constitutional Constitutional: Reports systems reviewed and no addt'l complaints, except as documented Eyes Eyes: Reports systems reviewed and no addt'l complaints, except as documented ENT HEENT: Reports systems reviewed and no addt'l complaints, except as documented Cardiovascular Cardiovascular: Reports systems reviewed and no addt'l complaints, except as documented Respiratory/Chest Respiratory/Chest: Reports systems reviewed and no addt'l complaints, except as documented Gastrointestinal Gastrointestinal: Reports systems reviewed and no addt'l complaints, except as documented Genitourinary Genitourinary: Reports systems reviewed and no addt'l complaints, except as documented Musculoskeletal Musculoskeletal: Reports systems reviewed and no addt'l complaints, except as documented Integumentary Integumentary: Reports systems reviewed and no addt'l complaints, except as documented Neurologic Neurologic: Reports systems reviewed and no addt'l complaints, except as documented Psychiatric Psychiatric: Reports systems reviewed and no addt'l complaints, except as documented Endocrine Endocrinology: Reports systems reviewed and no addt'l complaints, except as documented Hematologic/Lymphatic Hematologic/Lymphatic: Reports systems reviewed and no addt'l complaints, except as documented Allergic/Immunologic Allergic/Immunologic: Reports systems reviewed and no addt'l complaints, except as documented Vital Signs Vital Signs Vital Signs: 09/15/20 12:24 09/15/20 12:25 09/15/20 12:26 Pulse Rate 93 93 Blood Pressure 136/91 H BP Systolic 136 BP Diastolic 91 Pulse Ox 80 97 Weight Weight: 102.058 kg Body Mass Index (BMI) 34.2 Physical Exam Const alert, oriented x3 and no apparent distress HEENT normocephalic Head and Scalp: atraumatic Eyes PERRL Neck full ROM Chest inspection of chest normal Resp normal respiratory effort, no use of accessory muscles and clear to auscultation bilaterally Cardio regular rate and regular rhythm GI normal to inspection, nondistended, normoactive bowel sounds Inspection: gravid Back/Spine normal ROM Extremity normal to inspection and no pedal edema Neuro no focal motor deficits and no sensory deficits noted Psych mental status grossly normal, affect normal and speech normal Labs Labs Labs: Blood Type A POSITIVE Antibody Screen NEGATIVE Hct 36.7 % (37-47) L Hgb 12.2 g/dL (12.0-15.0) Rubella IgG Antibody Reactive (Nonreactive) Hep Bs Antigen Non-Reactive (Nonreactive) Neisseria gonorrhoeae DNA (ADOLFO) Negative (Negative) HIV 1&2 Antibody Non-Reactive (Nonreactive) C.trachomatis DNA (PCR) Negative (Negative) Glucose 1 Hr 50 gm 79 mg/dL (70-140) Group B Strep DNA Negative (Negative) Rhogam given: No Assessment & Plan (1) : PLAN: 25 yo at 38/5w, TIEN 09/24/20 by LMP, admitted for repeat section for nonreassuring heart tones in office at term. 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 No genetic testing). Has had echo in May that showed mild enlargement of RA and RV. Recommended for pediatric cardiology follow up at 1-2 months. Planned for repeat section. R/B/A discussed with the patient. Risks include but are not limited to: Risk of bleeding to the point of transfusion, infection, injury to surrounding tissue including bowel or bladder, VTE, ICU admission. Patient aware and consented. 2 g Ancef preoperatively. As status is currently reassuring we will proceed in urgent but not emergent fashion. 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
[2020-09-15 13:14] LABS: Absolute Lymphocyte Count 1.61 X10^3/uL (0.83-4.51); Absolute Neutrophil Count 10.3 X10^3/uL (2.0-7.7); Basophil# 0.03 X10^3/uL; Basophil% 0.2 % (0-1); Eosinophil# 0.03 X10^3/uL; Eosinophils% 0.2 % (0-5); Hematocrit 34.6 % (37-47); Hemoglobin 11.4 g/dL (12.0-15.0); Lymphocyte # 1.61 X10^3/ul (0.83-4.51); Lymphocyte % 12.6 % (19-41); Mean Corp Hgb Conc 32.9 g/dL (32-36); Mean Corpuscular Hgb 26.6 pg (27.0-32.0); Mean Corpuscular Volume 80.7 fL (81-99); Mean Platelet Vol. 9.6 fl (6.2-12.0); Monocyte# 0.64 X10^3/uL; NRBC Flagged by Analyzer 0 % (0-5); Neutrophil # 10.33 X10^3/uL (2.7-7.7); Neutrophil % 81.3 % (47-70); Platelet Count 203 K/mm3 (150-450); RBC Distribution Width CV 13.8 % (11.6-14.6); RBC Distribution Width SD 39.4 fl (35.1-43.9); Red Blood Count 4.29 M/mm3 (4.2-5.4); White Blood Count 12.7 K/mm3 (4.4-11.0)
[2020-09-15] MEDS: Acetaminophen 500 MG Tablet 1000 MG PO ×2 (13:26→19:31)
[2020-09-15] MEDS: Lactated Ringers 1,000 ML 150 ML IV (14:03)
[2020-09-15] MEDS: Sodium Citrate/Citric Acid 30 ML UDC PO (14:05)
[2020-09-15] MEDS: Cefazolin 2 GM in 0.9% Normal Saline 100 ML IV (14:08)
[2020-09-15 14:23] LABS: ALB/GLOB Ratio 0.7 RATIO (0.9-2.4); AST(SGOT) 9 U/L (15-37); Alanine Aminotransfer ALT/SGPT 7 U/L (13-56); Albumin, Serum 2.6 g/dL (3.2-5.0); Alkaline Phosphatase 116 U/L (45-117); Anion Gap 12 (5-15); BUN 7 mg/dL (7-18); BUN/Creat Ratio 16.7 RATIO (10-20); Calcium,Total 8.5 mg/dL (8.5-10.1); Chloride 106 mmol/L (98-107); Creatinine, Serum 0.42 mg/dL (0.55-1.02); EST Glomerular Filtration Rate 195 mL/min (>60); Est Glom Filt Rate - Afr Amer 236 mL/min (>60); Estimated Creatinine Clearance 204.76 ml/min; Globulin 3.5 g/dL (2.2-4.2); Glucose 76 mg/dL (74-106); LDH 140 U/L (84-246); Potassium 3.7 mmol/L (3.5-5.1); Protein, Total 6.1 g/dL (6.4-8.2); Sodium Level 139 mmol/L (136-145)
--- NOTE | 2020-09-15 15:04 | EX.PCM.OBRPT ---
Maternal Data Information Final TIEN: 09/24/20 Final TIEN Source: LMP Details Operative Information Date of Procedure: 09/15/20 Pre-Operative Diagnosis: Monteiro intrauterine , nonreassuring heart tones. 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 All risk, benefits, alternatives were discussed with the patient. Risks include but are not limited to: Risk of bleeding to the point of transfusion, infection, injury to surrounding tissue including bowel or bladder, VTE, ICU admission. Patient aware and consented. Classification: ADRIEN Procedure Type: low transverse Antibiotic Given: Ancef 2 grams IV x1 Estimated Blood Loss: 700 cc Fluids Replaced: 800cc Findings Description of Procedure: Patient taken back to the operating room spinal anesthesia placed. Patient placed in the supine position with left lateral tilt. Prepped and draped in the usual sterile fashion. Pfannenstiel skin incision made through skin and underlying subcutaneous tissue. Fascia nicked on either side of midline and extended bilaterally using Lopez scissors. Michel clamps placed in superior fascial edge which was tented up and underlying rectus muscles were dissected off bluntly and sharply at midline using Lopez scissors. Michel clamps moved to inferior fascial edge which was tented up and rectus muscles were dissected off in a similar fashion. Rectus muscles superiorly with 2 hemostats. Peritoneum entered with Metzenbaum scissors. Extended bluntly. Bladder blade placed. Vesicouterine peritoneum identified and bladder flap created. Palpation of uterus noted breech presentation. Low transverse uterine incision made with scalpel and extended bluntly. Hand placed into the uterine cavity delivery of left foot followed by right. buttocks and body covered with blue towel and delivered. Arms delivered by sweeping across the chest. Head flexed and delivered. Nuchal cord x1, loose, delivered through. Cord clamped and cut baby handed to nursing. Spontaneous delivery of placenta. Uterus exteriorized and cleared of all clots with lap. Uterine incision closed with a running locking stitch followed by a second horizontal imbricating stitch. Hemostatic with some Bovie electrocautery. Uterus replaced into the abdomen. Peritoneum closed with a running stitch. Fascia closed with a running stitch. Subcutaneous tissue closed closed with a running stitch. Skin closed with running subcuticular stitch. At the end of the procedure all needle, lap, sponge counts were correct x3. Amniotic Membrane Rupture Type: Artificial Amniotic Fluid Description: Clear (1 minute): 8 (5 minute): 9 Complications Complications: None
--- NOTE | 2020-09-15 15:24 | PCM.DC ---
Documented by User: Dr. Claudine Alvarado DO 09/15/20 15:26 Discharge Instructions Diet Discharge Diet: No restrictions Activity Discharge Activity: Return to Normal Activity and May Shower May resume sexual activity in: 4-6 weeks Weight Bearing Status: Weight bearing as tolerated Lifting Restrictions: 20-25 lb Dressing / Incision Call your doctor if your incision/area has: Continuous Slow Oozing, Sudden Increased Bleeding, Increased Redness and Foul Smelling Discharge Call your doctor if you observe: Fever of 101 or Higher, Using more than 1 pad per hour, Shortness of breath, Dizziness, Fainting spells, Swelling in the ankles, Chest pain and Calf discomfort Remove Dressing in: 5 days Cleanse incision/area with: Soap & Water Follow Up Care Please Follow Up With: Pankaj Alvarado MD When: 2 week post op, 6 week Test Results: Test results from this visit will be discussed in further detail at your follow-up appointment, if applicable. Discharge Plan Admission Admit Date/Time: 09/15/20 12:14 Primary Reason for Your Visit: Repeat section Attending Provider: Claudine Alvarado Primary Care Provider: Care Physician,No Primary Discharge Orders/Prescriptions Prescriptions: New oxycodone 5 mg Tablet 5 mg PO Q6H PRN PRN (Reason: Pain, Severe) 5 Days Qty: 24 RF: 0 Referrals / Follow Up: Care Physician,No Primary [Primary Care Provider] - Disposition Disposition (needs filled in before D/C Order can be placed): Home, Self Care Documented by User: Dr. Pankaj Alvarado MD 09/17/20 07:41 Discharge Plan Admission Admit Date/Time: 09/15/20 12:14 Primary Reason for Your Visit: Repeat section Attending Provider: Claudine Alvarado Primary Care Provider: Jeanette Physician,No Primary Discharge Orders/Prescriptions Prescriptions: New oxycodone 5 mg Tablet 5 mg PO Q6H PRN PRN (Reason: Pain, Severe) 5 Days Qty: 24 RF: 0 Referrals / Follow Up: Care Physician,No Primary [Primary Care Provider] - Disposition Disposition (needs filled in before D/C Order can be placed): Home, Self Care
[2020-09-15] MEDS: Oxytocin 30 units/NS 500 ml 30 UNITS/500 ML IV.SOLN 167 UNITS IV (15:27)
[2020-09-15] MEDS: Ketorolac 30 MG/ML Syringe IV ×2 (16:43→22:35)
--- NOTE | 2020-09-15 18:35 | NURSING ---
pt has indwelling urinary catheter
[2020-09-15] MEDS: Lactated Ringers 1,000 ML 100 ML IV (18:45)
[2020-09-15] MEDS: 0.9% Saline Lock 10 ML Syringe IV (22:35)
[2020-09-16 01:32] VITALS: PULSE 83; RESP 18; O2SAT 95
[2020-09-16] MEDS: Acetaminophen 500 MG Tablet 1000 MG PO ×4 (01:34→22:17)
--- NOTE | 2020-09-16 02:17 | NURSING ---
This RN assuming care of patient at this time. Report received from Pati Jacobs RN.
[2020-09-16 04:07] VITALS: BP 130/69; PULSE 68; RESP 14; TEMP 36.9; O2SAT 99
[2020-09-16] MEDS: Ketorolac 30 MG/ML Syringe IV ×2 (04:08→10:19)
[2020-09-16] MEDS: Enoxaparin 40 MG/0.4 ML Syringe SC (04:09)
[2020-09-16] MEDS: 0.9% Saline Lock 10 ML Syringe IV ×2 (04:09→10:28)
[2020-09-16 05:34] LABS: Hematocrit 29.7 % (37-47); Hemoglobin 9.7 g/dL (12.0-15.0); Mean Corp Hgb Conc 32.7 g/dL (32-36); Mean Corpuscular Hgb 27.2 pg (27.0-32.0); Mean Corpuscular Volume 83.4 fL (81-99); Mean Platelet Vol. 9.9 fl (6.2-12.0); POSITIVE COUNT YES; Platelet Count 168 K/mm3 (150-450); RBC Distribution Width CV 13.5 % (11.6-14.6); RBC Distribution Width SD 41.1 fl (35.1-43.9); Red Blood Count 3.56 M/mm3 (4.2-5.4); White Blood Count 17.9 K/mm3 (4.4-11.0)
[2020-09-16 05:37] LABS: Scan Indicated on CBC? Y/N YES- FLAGS NOTED
[2020-09-16 06:13] LABS: Differential Comment SCANNED
--- NOTE | 2020-09-16 08:19 | PN.OBGYN_ITS ---
Subjective Subjective Postop day 1. Pain controlled. Lochia minimal. Issues or concerns. Objective Data Objective Data Vital Signs: Vital Signs Temp Pulse Resp BP Pulse Ox 98.4 F 68 14 130/69 H 99 09/16/20 04:07 09/16/20 04:07 09/16/20 04:07 09/16/20 04:07 09/16/20 04:07 Oxygen Delivery Method Room Air Weight: 102.058 kg Body Mass Index (BMI) 34.2 Intake & Output: Intake and Output for Last 24 Hours 09/14/20 09/15/20 09/16/20 23:59 23:59 23:59 Intake Total 2126.67 / 2126.67 Output Total 950 / 950 500 / 500 Balance 1176.67 / 1176.67 -500 / -500 Lab / Micro Data Result Diagrams: 09/16/20 05:25 09/15/20 13:30 Labs: Laboratory Results - last 24 hr 09/15/20 09/15/20 09/15/20 12:50 12:50 12:50 WBC 12.7 H RBC 4.29 Hgb 11.4 L Hct 34.6 L MCV 80.7 L MCH 26.6 L MCHC 32.9 RDW Std Deviation 39.4 RDW Coeff of John 13.8 Plt Count 203 MPV 9.6 Immature Gran % (Auto) 0.700 Neut % (Auto) 81.3 H Lymph % (Auto) 12.6 L Pierce % (Auto) 5.0 Eos % (Auto) 0.2 Baso % (Auto) 0.2 Absolute Neuts (auto) 10.3 H Absolute Lymphs (auto) 1.61 Nucleated RBC % 0 Differential Comment Sodium Cancelled Potassium Cancelled Chloride Cancelled Carbon Dioxide Cancelled Anion Gap Cancelled BUN Cancelled Creatinine Cancelled Estim Creat Clear Calc Cancelled Est GFR (MDRD) Af Amer Cancelled Est GFR (MDRD) Non-Af Cancelled BUN/Creatinine Ratio Cancelled Glucose Cancelled Calcium Cancelled Total Bilirubin Cancelled AST Cancelled ALT Cancelled Alkaline Phosphatase Cancelled Lactate Dehydrogenase Cancelled Total Protein Cancelled Albumin Cancelled Globulin Cancelled Albumin/Globulin Ratio Cancelled Blood Type A POSITIVE Antibody Screen NEGATIVE 09/15/20 09/16/20 13:30 05:25 WBC 17.9 H RBC 3.56 L Hgb 9.7 L Hct 29.7 L MCV 83.4 MCH 27.2 MCHC 32.7 RDW Std Deviation 41.1 RDW Coeff of John 13.5 Plt Count 168 MPV 9.9 Immature Gran % (Auto) Neut % (Auto) Lymph % (Auto) Pierce % (Auto) Eos % (Auto) Baso % (Auto) Absolute Neuts (auto) Absolute Lymphs (auto) Nucleated RBC % Differential Comment SCANNED Sodium 139 Potassium 3.7 Chloride 106 Carbon Dioxide 21.0 Anion Gap 12 BUN 7 Creatinine 0.42 L Estim Creat Clear Calc 204.76 Est GFR (MDRD) Af Amer 236 Est GFR (MDRD) Non-Af 195 BUN/Creatinine Ratio 16.7 Glucose 76 Calcium 8.5 Total Bilirubin 0.50 AST 9 L ALT 7 L Alkaline Phosphatase 116 Lactate Dehydrogenase 140 Total Protein 6.1 L Albumin 2.6 L Globulin 3.5 Albumin/Globulin Ratio 0.7 L Blood Type Antibody Screen Micro: Microbiology 09/15/20 12:35 Mucosa - Nose SARS-CoV-2 Antigen (Rapid) - Final Physical Exam Const alert, oriented x3 and no apparent distress HEENT normocephalic Head and Scalp: atraumatic Neck full ROM Resp normal respiratory effort Cardio regular rate GI normal to inspection, nondistended, normoactive bowel sounds GI Narrative: Uterus 2 cm below umbilicus. Dressing clean dry. Extremity normal to inspection and no clubbing, cyanosis or edema Neuro no focal motor deficits and no sensory deficits noted Psych mental status grossly normal and affect normal Assessment & Plan (1) Delivery by section: PLAN: Postoperative day 1 status post repeat section. Complicated by acute blood loss anemia secondary to surgery, to iron supplement at home. 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 He is currently in a special care nursery on oxygen, per nursing staff there expected to come off oxygen this afternoon/early evening. He is otherwise doing well. Will need follow-up with pediatric cardiology in 1 to 2 months at minimum per [facility]. Likely home postop day 2-3. (2) Acute blood loss as cause of postoperative anemia:
[2020-09-16 09:17] VITALS: BP 131/69; PULSE 74; RESP 18; TEMP 36.7; O2SAT 99
[2020-09-16] MEDS: Senna/Docusate Sodium 1 Tablet PO (10:20)
[2020-09-16 11:47] VITALS: BP 133/76; PULSE 85; RESP 18; TEMP 37.1; O2SAT 97
--- NOTE | 2020-09-16 15:02 | CASEMGMT ---
Social Work Assessment Labor and delivery Unit Date/Time/Reason for Referral: 09/15/20 17:07, referral for baby in SCN and with skeletal dysplasia Referred by Dr. Reed Date/Time of intervention: 09/16/20, 14:30 History obtained from: MOB and FOB Household Composition/Living arrangements: MOB and FOB live together in a house, with their 2/5 year old [place] and now baby Zenon. MOB and FOB have been since 2018. Medical History: Baby Zenon born 09/15/20, Apgars 8 and 9, weight 3.245kg. 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 They plan to get formula prior to returning home. Childcare/Caregivers/Support: Both report supportive extended families, both grandmothers in particular. Son João is with MOB's mother at present. Transportation: Buggy, bicycles, will use taxi if needed and seasonal driver if needed Programs/Agencies involved: None. Information given on [facility], they plan to follow up with their chief fishery division regarding referral if needed. Children's Services/Legal Issues: None Behavioral Health/Substance Abuse issues for FOB and MOB: None reported. no concerns for safety at home. Depression and Anxiety/Shaken baby/Safe Sleeping: Information given and reviewed on these topics. Assessment: SW met w/FOB and MOB in SCN. MOB and FOB both appropriate, answered all questions. MOB holding baby, baby asleep on MOB's chest. MOB appears comfortable with baby. MOB did express does not want baby discharged before ready, and then stated she knows the hospital will not do this. Plan: Baby home w/MOB and FOB at discharge, they plan to follow up w/pedicatrician regarding [facility] referral if needed. No further social service needs anticipated. LAMONTE Khan
[2020-09-16 15:45] VITALS: BP 128/77; PULSE 74; RESP 18; TEMP 36.1
[2020-09-16] MEDS: Ibuprofen 600 MG Tablet PO ×2 (17:35→22:17)
[2020-09-16 22:18] VITALS: BP 134/77; PULSE 77; RESP 18; TEMP 36.9; O2SAT 97
[2020-09-17] MEDS: oxyCODONE 5 MG Tablet PO (02:54)
[2020-09-17 02:56] VITALS: BP 110/55; PULSE 69; RESP 16; TEMP 37.1; O2SAT 98
[2020-09-17] MEDS: Ibuprofen 600 MG Tablet PO ×2 (04:13→10:35)
[2020-09-17] MEDS: Acetaminophen 500 MG Tablet 1000 MG PO ×2 (04:14→10:37)
[2020-09-17] MEDS: Enoxaparin 40 MG/0.4 ML Syringe SC (04:14)
--- NOTE | 2020-09-17 07:38 | PCM.PN.OB ---
Subjective Subjective No overnight complaints. Pain well controlled. Objective Data Objective Data Vital Signs: Vital Signs Temp Pulse Resp BP Pulse Ox 98.7 F 69 16 110/55 L 98 09/17/20 02:56 09/17/20 02:56 09/17/20 02:56 09/17/20 02:56 09/17/20 02:56 Oxygen Delivery Method Room Air Weight: 225 lb Body Mass Index (BMI) 34.2 Intake & Output: Intake and Output for Last 24 Hours 09/15/20 09/16/20 09/17/20 23:59 23:59 23:59 Intake Total 2126.67 / 2126.67 Output Total 950 / 950 500 / 500 Balance 1176.67 / 1176.67 -500 / -500 Lab / Micro Data Result Diagrams: 09/16/20 05:25 09/15/20 13:30 Micro: Microbiology 09/15/20 12:35 Mucosa - Nose SARS-CoV-2 Antigen (Rapid) - Final Physical Exam Const alert, oriented x3 and no apparent distress HEENT normocephalic and moist oral mucous membranes Head and Scalp: atraumatic Neck full ROM Resp normal respiratory effort, no retractions and no use of accessory muscles GI normal to inspection, nondistended, normoactive bowel sounds Extremity normal to inspection, full ROM and no clubbing, cyanosis or edema Skin no rashes or lesions noted Psych mental status grossly normal, affect normal, speech normal and activity/motor behavior normal Assessment & Plan (1) : PLAN: Postop day 2 status post repeat section. Patient's pain well controlled. 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 Patient desires for hotel status, okay to discharge today
[2020-09-17 08:41] VITALS: BP 138/70; PULSE 72; RESP 18; TEMP 36.2; O2SAT 100
[2020-09-17] MEDS: Senna/Docusate Sodium 1 Tablet PO (10:36)
--- NOTE | 2020-09-17 13:35 | NURSING ---
Infant, Zenon, being transported to [facility] due to dwarfism/respiratory issues/no BM for 48 hours. [place] care and feeding teaching is altered due to infant's condition so RN will allow [facility] to do the teaching d/t to the special needs with this baby. Parents have another child at home and feel comfortable caring for . The transport team is here at this time.
== END 2020-09-17 14:00 | disposition home or self-care (01) | DRG 788 ==
PROVIDERS: Obstetrics & Gynecology; Admitting Provider Student in an Organized Health Care Education/Training Program; Visit Provider Student in an Organized Health Care Education/Training Program
DX: O36.8330 Maternal care for abnormalities of the fetal heart rate or rhythm, third trimester, not applicable or unspecified (principal); O69.81X0 Labor and delivery complicated by cord around neck, without compression, not applicable or unspecified; Z3A.38 38 weeks gestation of pregnancy; Z37.0 Single live birth
CPT/HCPCS: 59025; 59050; 80053; 83615; 85025; 85027; 86850; 86900; 86901; 87426; 99218; J7120; A4216; G0378; J2405